=== PATIENT | male | born 1990 | race Two or more races ===

== ENCOUNTER 2024-01-21 13:06 | Inpatient (IN) | payer MEDICAID, OTHER ==
[~2024-01-21] VITALS: Ht 170.2 cm; Wt 84.9 kg
[2024-01-21] MEDS: SODIUM CHLORIDE 0.9% 1,000 ML IV ONE ×2 (15:06→17:30)
[2024-01-21 15:08] VITALS: PULSE 101; RESP 16; O2SAT 97
--- NOTE | 2024-01-21 15:17 | ED.PDOC ---
History of Present Illness HPI Comments 33-year-old male brought in by EMS complaining of dizziness since this morning. Patient states he feels like he is going to pass out, and has had unexplained sweating and chills. He denies any fever, but has had headache, nausea and vomiting. He also notes onset of left-sided chest pain and pain radiating to his left upper extremity while awaiting evaluation in the ER. He denies any shortness a breath or edema. He states he has a history of hypertension but is not currently taking any medications and does not regularly see a doctor. He also admits to regular moderate to heavy alcohol consumption, but states he not had a drink in 2 days. Chief Complaint: Dizziness Time Seen by MD: 14:25 Reviewed Notes: Nurses Notes, Change Lead Notes, Medications, Allergies Allergies: Coded Allergies: NO KNOWN ALLERGIES (Unverified , 01/21/24) Information Source: Patient Mode of Arrival: EMS Severity: Moderate Timing: Hours Duration: Since onset, Hours Prehospital treatment: None Past Medical History PAST MEDICAL HISTORY: HTN Surgical History: Denies all surgeries Family History Family History: Reviewed,noncontributory to illness, Unknown Social History Smoker: Cigarettes Alcohol: Heavy Drugs: Denies Drug Use Lives In: Homeless Constitutional: denies: chills, diaphoresis, fatigue, fever, malaise, sweats, weakness, others EENTM: denies: blurred vision, double vision, ear bleeding, ear discharge, ear drainage, ear pain, ear ringing, eye pain, eye redness, hearing loss, mouth pain, mouth swelling, nasal discharge, nose bleeding, nose congestion, nose pain, photophobia, tearing, throat pain, throat swelling, voice changes, others Respiratory: denies: cough, hemoptysis, orthopnea, SOB at rest, shortness of breath, SOB with excertion, stridor, wheezing, others Cardiovascular: reports: chest pain, syncope; denies: dizzy spells, diaphoresis, Dyspnea on exertion, edema, irregular heart beat, left arm pain, lightheadedness, palpitations, PND, others Gastrointestinal: denies: abdomen distended, abdominal pain, blood streaked bowels, constipated, diarrhea, dysphagia, difficulty swallowing, hematemesis, melena, nausea, poor appetite, poor fluid intake, rectal bleeding, rectal pain, vomiting, others Genitourinary: denies: burning, dysuria, flank pain, frequency, hematuria, incontinence, penile discharge, penile sore, pain, testicle pain, testicle swelling, urgency, others Neurological: reports: dizziness, fainting; denies: headache, left sided numbness, left sided weakness, numbness, paresthesia, pre-existing deficit, right sided numbness, right sided weakness, seizure, speech problems, tingling, tremors, weakness, others Musculoskeletal: denies: back pain, gout, joint pain, joint swelling, muscle pain, muscle stiffness, neck pain, others Integumetry: denies: bruises, change in color, change in hair/nails, dryness, laceration, lesions, lumps, rash, wounds, others Allergic/Immunocompromised: denies: Difficulty Healing, Frequent Infections, Hives, Itching, others Hematologic/Lymphatic: denies: anemia, blood clots, easy bleeding, easy bruising, swollen glands, others Endocrine: denies: excessive hunger, excessive sweating, excessive thirst, excessive urination, flushing, intolerance to cold, intolerance to heat, unex plained weight gain, unexplained weight loss, others Psychiatric: denies: anxiety, bipolar disorder, depression, hopeless, panic disorder, schizophrenia, sleepless, suicidal, others All Other Systems: Reviewed and Negative Physical Exam General Appearance: Mild Distress, Other (Ill-appearing) HEENT: Normal ENT Inspection, PERRL/EOMI Neck: Full Range of Motion, Non-Tender, Normal Inspection, Supple Respiratory: Lungs Clear, No Accessory Muscle Use, No Respiratory Distress, Normal Breath Sounds Cardiovascular: No Edema, No JVD, Regular Rate/Rhythm Breast Exam: Deferred Gastrointestinal: Non Tender, Soft Genitalia: Deferred Pelvic: Deferred Rectal: Deferred Extremities: Normal inspection, Normal range of motion, Non-tender, No pedal edema Neurologic: Alert, Normal Affect, Normal Mood, Other (Appears tremulous, moves all extremities, no gross focal deficit) Cerebellar Function: NOT DONE Reflexes: NOT DONE Skin: Diaphoresis, Pallor, Other (Cool) Lymphatic: NOT DONE Was a procedure done? Was a procedure done?: No Differential Dx Considerations may include: Alcohol withdrawal, viral syndrome, dehydration/hypovolemia, electrolyte imbalance, CVA, TIA, vertigo, arrhythmia or other cardiac event, among others X-Ray, Labs, Meds, VS Vital Signs Date Time Temp Pulse Resp B/P (MAP) Pulse Ox O2 Delivery O2 Flow Rate FiO2 01/21/24 15:08 101 16 97 Room Air* 0 21 01/21/24 15:08 98.3 101 18 218/96 (136) 97 98.3 01/21/24 13:11 95 01/21/24 13:10 97.6 103 16 174/115 (134) 99 Lab Test 01/21/24 16:40 01/21/24 14:44 Range/Units Troponin I High Sensitivity 17 15 </=54 ng/L White Blood Count 8.1 4.4-10.8 10^3/uL Red Blood Count 5.30 4.5-5.90 10^6/uL Hemoglobin 18.3 H 13.5-17.5 g/dL Hematocrit 52.4 41.0-53.0 % Mean Corpuscular Volume 98.9 80.0-100.0 fL Mean Corpuscular Hemoglobin 34.5 H 28.0-32.0 pg Mean Corpuscular Hemoglobin Concent 34.9 32.0-36.0 g/dL Red Cell Distribution Width 13.0 11.8-14.3 % Platelet Count 94 L 140-450 10^3/uL Mean Platelet Volume 8.3 6.9-10.8 fL Neutrophils (%) (Auto) 90.1 H 37.0-80.0 % Lymphocytes (%) (Auto) 2.5 L 10.0-50.0 % Monocytes (%) (Auto) 7.2 0.0-12.0 % Eosinophils (%) (Auto) 0.0 0.0-7.0 % Basophils (%) (Auto) 0.2 0.0-2.0 % Neutrophils # (Auto) 7.3 1.6-8.6 10 ^3/uL Lymphocytes # (Auto) 0.2 L 0.4-5.4 10 ^3/uL Monocytes # (Auto) 0.6 0-1.3 10 ^3/uL Eosinophils # (Auto) 0 0-0.8 10 ^3/uL Basophils # (Auto) 0 0-0.2 10 ^3/uL Nucleated Red Blood Cells 0.0 % Sodium Level 131 L 136-145 mmol/L Potassium Level 4.0 3.5-5.1 mmol/L Chloride Level 92 L 98-107 mmol/L Carbon Dioxide Level 22 20-31 mmol/L Anion Gap 17 H 5-15 Blood Urea Nitrogen 23 9-23 mg/dL Creatinine 0.89 0.700-1.30 mg/dL Glomerular Filtration Rate Calc 115 >90 mL/min BUN/Creatinine Ratio 25.8 H 10.0-20.0 Serum Glucose 179 H 74-106 mg/dL Lactic Acid Level 2.8 *H 0.4-2.0 mmol/L Calcium Level 9.7 8.7-10.4 mg/dL B-Type Natriuretic Peptide 36.42 0-100 pg/mL Plasma/Serum Blood Alcohol < 3.0 <10 mg/dL Current Medications Medications (Trade) Dose Ordered Sig/Chirag Route Start Time Stop Time Status Last Admin Sodium Chloride 1,000 ml @ 1,000 mls/hr Q1H ONCE IV 01/21/24 14:45 01/21/24 15:44 DC 01/21/24 15:06 Lorazepam (Ativan Inj) 1 mg ONCE ONCE IV 01/21/24 15:15 01/21/24 15:16 DC 01/21/24 16:21 Chlordiazepoxide HCl (Librium Capsule) 50 mg ONCE ONCE PO 01/21/24 15:15 01/21/24 15:16 DC 01/21/24 16:21 Ondansetron HCl (Zofran) 4 mg ONCE ONCE IV 01/21/24 15:15 01/21/24 15:16 DC 01/21/24 16:21 PROCEDURE(s): HWOCT - HEAD WITHOUT CONTRAST REASON: dizzy syncope ORDER NUMBER(s): [id number], ACCESSION NUMBER(s): [id number] ADDENDUM ADDENDUM # 1 Critical findings (potentially) Critical Result: Vague area of hypoattenuation in the left frontal lobe. Can not exclude infarct in the appropriate clinical setting. Findings discussed with DAVE ZARATE by Dr. 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 .. ORIGINAL REPORT CLINICAL INFORMATION: 33 years old, Male; dizzy, syncope. TECHNIQUE: Axial imaging was obtained through the brain without contrast. Coronal and sagittal reformatted images were obtained, reviewed, and stored. Images were reviewed in brain and bone windows. All CT scans at this medical facility are performed using dose modulation techniques as appropriate to a performed exam including the following: Automated exposure control was utilized; adjustment of the MA and/or KV according to patient size; and use of iterative reconstruction technique. CTDIvol = 53.82 mGy DLP = 972.13 mGy-cm COMPARISON: None FINDINGS: No acute intracranial hemorrhage. Subtle area of hypoattenuation suspected in the left frontal lobe, of uncertain etiology. The ventricles and sulci are within normal limits in size for age. Basal cisterns are patent. The calvarium is unremarkable. Paranasal sinuses and mastoid air cells are clear. IMPRESSION: 1. No acute intracranial hemorrhage. 2. Subtle ill-defined area of hypoattenuation in the left frontal lobe. Correlate with clinical findings. If there is any clinical concern for ischemia or other pathology in this location, MRI could be obtained. X-Ray, Labs, Meds, VS Comment 33-year-old male with a history of hypertension complaining of dizziness and near syncope Vitals remarkable for heart rate 103, BP 174/115 Exam remarkable for diaphoresis and tremulousness. No gross focal neurologic deficit CT head: IMPRESSION: 1. No acute intracranial hemorrhage. 2. Subtle ill-defined area of hypoattenuation in the left frontal lobe. Correlate with clinical findings. If there is any clinical concern for ischemia or other pathology in this location, MRI could be obtained. Critical Result: Vague area of hypoattenuation in the left frontal lobe. Can not exclude infarct in the appropriate clinical setting. CBC remarkable for hemoglobin 18.3, basic metabolic panel remarkable for sodium 131, chloride 92, BNP and 2 troponins negative Lactate 2.8 Patient treated with the following in the ED: 1 L 0.9 normal saline IV bolus, Ativan 1 mg IV, Librium 50 mg p.o., Zofran 4 mg IV, hydralazine 10 mg IV, aspirin 325 mg p.o. On re-evaluation, patient had no new neurologic changes, appeared to be resting comfortably. Plan is to admit the patient for MRI and neuro evaluation. Time of 1ST Reevaluation: 14:55 Reevaluation 1ST: Unchanged Time of 2ND Reevaluation: 17:37 Reevaluation 2ND: Improved Patient Education/Counseling: Diagnosis, Treatment, Prognosis Family Education/Counseling: No Family Present Additional Information - The following tests were ordered, and results were reviewed by me: PHA, XY, L AB, EKG, CT - I reviewed and agreed with the following test results read by other provider: X-ray, CT - I discussed treatments and results with medical personnel and: (consultants, family) Departure 1 Departure Time of Disposition: 17:38 Impression: Primary Impression: Hypertensive emergency Additional Impressions: Dizziness Alcohol withdrawal Qualified Codes: F10.939 - Alcohol use, unspecified with withdrawal, unspecified Electrolyte imbalance Elevated lactic acid level Disposition: ADMITTED INPATIENT Admit to: Tele Condition: Guarded Critical Care Note Critical Care Time?: Yes (45 min-critical care time only) Critical care comment: Critical care time including multiple bedside re-evaluations, review of lab and imaging studies, and discussion of the case with the admitting provider. Patient is high risk for hemodynamic, metabolic and/or neurologic decompensation Stability Stability form required: No Heart Score Heart Score: Heart Score Response (Comments) Value History N/A 0 EKG N/A 0 Age N/A 0 Risk Factors N/A 0 Troponin N/A 0 Total 0 I personally scribed for DAVE DOTY MD ([email or web address]) on 01/21/24 at 15:17. Electronically submitted by Sumit Cody ([email or web address]). DAVE DOTY MD Jan 21, 2024 15:17
--- NOTE | 2024-01-21 15:38 | DVH ---
XY CHEST PORTABLE, HISTORY: dzzy syncope COMPARISON: None None TECHNICAL DATA: 1 view of the chest was obtained. FINDINGS: Lines and tubes: None Cardiomediastinal silhouette: normal Pulmonary vasculature: normal Lung expansion: normal Lung airspace: normal Lung interstitium: normal Pleura: normal Pneumothorax: no Bones: Unremarkable Other: no IMPRESSION: No acute intrathoracic abnormality.
--- NOTE | 2024-01-21 15:39 | DVH ---
CLINICAL INFORMATION: 33 years old, Male; dizzy, syncope. TECHNIQUE: Axial imaging was obtained through the brain without contrast. Coronal and sagittal refor matted images were obtained, reviewed, and stored. Images were reviewed in brain and bone windows. A ll CT scans at this medical facility are performed using dose modulation techniques as appropriate to a performed exam including the following: Automated exposure control was utilized; adjustment of the MA and/or KV according to patient size; and use of iterative reconstruction technique. CTDIvol = 53.82 mGy DLP = 972.13 mGy-cm COMPARISON: None FINDINGS: No acute intracranial hemorrhage. Subtle area of hypoattenuation suspected in the left fro ntal lobe, of uncertain etiology. The ventricles and sulci are within normal limits in size for age. Basal cisterns are patent. The calvarium is unremarkable. Paranasal sinuses and mastoid air cell s are clear. IMPRESSION: 1. No acute intracranial hemorrhage. 2. Subtle ill-defined area of hypoattenuation in the left frontal lobe. Correlate with clinical findi ngs. If there is any clinical concern for ischemia or other pathology in this location, MRI could be obtained.
[2024-01-21 16:04] LABS: Anion Gap 17 (5-15); Basophils # (auto) 0 10 ^3/uL (0-0.2); Basophils % (auto) 0.2 % (0.0-2.0); Calcium 9.7 mg/dL (8.7-10.4); Carbon Dioxide 22 mmol/L (20-31); Eosinophils # (auto) 0 10 ^3/uL (0-0.8); Hematocrit 52.4 % (41.0-53.0); Hemoglobin 18.3 g/dL (13.5-17.5); Lymphocytes # (auto) 0.2 10 ^3/uL (0.4-5.4); Lymphocytes % (auto) 2.5 % (10.0-50.0); Mean Corpuscular Hemoglobin 34.5 pg (28.0-32.0); Mean Corpuscular Hgb Conc. 34.9 g/dL (32.0-36.0); Mean Corpuscular Volume 98.9 fL (80.0-100.0); Monocytes # (auto) 0.6 10 ^3/uL (0-1.3); Monocytes % (auto) 7.2 % (0.0-12.0); Neutrophils # (auto) 7.3 10 ^3/uL (1.6-8.6); Neutrophils % (auto) 90.1 % (37.0-80.0); Platelet Count (auto) 94 10^3/uL (140-450); White Blood Cell 8.1 10^3/uL (4.4-10.8)
[2024-01-21 16:09] LABS: BUN/Creatinine Ratio 25.8 (10.0-20.0)
[2024-01-21 16:14] LABS: Chloride 92 mmol/L (98-107); Sodium 131 mmol/L (136-145)
[2024-01-21 16:15] LABS: Blood Alcohol < 3.0 mg/dL (<10); Blood Urea Nitrogen 23 mg/dL (9-23); Glucose 179 mg/dL (74-106)
[2024-01-21 16:17] LABS: Lactic Acid w/Reflex 2.8 mmol/L (0.4-2.0)
[2024-01-21] MEDS: ONDANSETRON HCL 4 MG/2 ML VIAL IV ONE (16:21)
[2024-01-21] MEDS: LORazepam 2MG/ML-1ML VIAL IV ONE (16:21)
[2024-01-21] MEDS: chlordiazePOXIDE HCL 25 MG CAP PO ONE (16:21)
[2024-01-21] MEDS ORDERED: LORazepam 2MG/ML-1ML VIAL IV PRN (17:30)
[2024-01-21] MEDS ORDERED: ONDANSETRON HCL 4 MG/2 ML VIAL IV PRN (17:30)
[2024-01-21] MEDS ORDERED: DEXTROSE (50%) 50ML SYRG IV PRN (17:30)
[2024-01-21] MEDS: LORazepam 2MG/ML-1ML VIAL IV SCH (17:30)
[2024-01-21] MEDS ORDERED: ACETAMINOPHEN 325 MG TAB PO PRN (17:30)
--- NOTE | 2024-01-21 17:34 | DVHHP2 ---
History of Present Illness Reason for Visit: General weakness History of Present Illness 33-year-old obese patient comes in for complaints of weakness patient does have a past medical history of hypertension but states that she had been having dizziness on and off associated with sweating and chills patient also states having intermittent chest pain on and off but can not attribute it to anything that she can think of initially patient states no medications currently for the management of blood pressure but does have a strong history of drinking and there is slight concern that the patient may be having signs of early withdrawal other than drinking history no smoking history patient takes no other medica tions states no other drug use plan as of now is for admission and further evaluation as per ED recommendation Cardiovascular: HTN ALCOHOL: heavy Review of Systems Constitutional: Yes: Weakness; No: Fever, Chills, Sweats, Malaise, Other Eyes: No: Pain, Vision change, Conjunctivae inflammation, Eyelid inflammation, Other, Redness ENT: No: Ear pain, Ear discharge, Nose pain, Nose discharge, Nose congestion, Mouth pain, Mouth swelling, Throat pain, Throat swelling, Other Respiratory: No: Cough, Dry, Shortness of breath, SOB with excertion, Wheezing, Hemoptysis, Pleuritic Pain, Sputum, Wheezing, Other Cardiovascular: Chest Pain, Palpitations; No: Orthopnea, Paroxysmal Noc. Dyspnea, Edema, Lt Headedness, Other Gastrointestinal: No: Nausea, Vomiting, Abdominal Pain, Diarrhea, Constipation, Melena, Hematochezia, Other Genitourinary: No Dysuria, No Frequency, No Incontinence, No Hematuria, No R etention, No Other Musculoskeletal: No: other, neck pain, shoulder pain, arm pain, back pain, hand pain, leg pain, foot pain Skin: No: Rash, Lesions, Jaundice, Bruising, Other Neurological: No: Weakness, Numbness, Incoordination, Change in speech, Confusion, Seizures, Other Allergies: Coded Allergies: NO KNOWN ALLERGIES (Unverified , 01/21/24) Exam Vital Signs Vital Signs Date Time Temp Pulse Resp B/P (MAP) Pulse Ox O2 Delivery O2 Flow Rate FiO2 01/21/24 15:08 101 16 97 Room Air* 0 21 01/21/24 15:08 98.3 218/96 (136) 98.3 General Appearance: Alert, Oriented X3, mild distress HEENT: Atraumatic, PERRLA Respiratory: Clear to auscultation, Normal air movement Cardiovascular: Regular rate, Normal S1 Abdominal: Normal bowel sounds, Soft Extremities: No clubbing, No cyanosis Skin: No rashes, No breakdown Neuro: Normal gait, Normal speech Psych/Mental Status: Mood NL Labs/Xrays Labs Test 01/21/24 16:40 01/21/24 14:44 Range/Units Troponin I High Sensitivity 17 </=54 ng/L White Blood Count 8.1 4.4-10.8 10^3/uL Red Blood Count 5.30 4.5-5.90 10^6/uL Hemoglobin 18.3 H 13.5-17.5 g/dL Hematocrit 52.4 41.0-53.0 % Mean Corpuscular Volume 98.9 80.0-100.0 fL Mean Corpuscular Hemoglobin 34.5 H 28.0-32.0 pg Mean Corpuscular Hemoglobin Concent 34.9 32.0-36.0 g/dL Red Cell Distribution Width 13.0 11.8-14.3 % Platelet Count 94 L 140-450 10^3/uL Mean Platelet Volume 8.3 6.9-10.8 fL Neutrophils (%) (Auto) 90.1 H 37.0-80.0 % Lymphocytes (%) (Auto) 2.5 L 10.0-50.0 % Monocytes (%) (Auto) 7.2 0.0-12.0 % Eosinophils (%) (Auto) 0.0 0.0-7.0 % Basophils (%) (Auto) 0.2 0.0-2.0 % Neutrophils # (Auto) 7.3 1.6-8.6 10 ^3/uL Lymphocytes # (Auto) 0.2 L 0.4-5.4 10 ^3/uL Monocytes # (Auto) 0.6 0-1.3 10 ^3/uL Eosinophils # (Auto) 0 0-0.8 10 ^3/uL Basophils # (Auto) 0 0-0.2 10 ^3/uL Nucleated Red Blood Cells 0.0 % Sodium Level 131 L 136-145 mmol/L Potassium Level 4.0 3.5-5.1 mmol/L Chloride Level 92 L 98-107 mmol/L Carbon Dioxide Level 22 20-31 mmol/L Anion Gap 17 H 5-15 Blood Urea Nitrogen 23 9-23 mg/dL Creatinine 0.89 0.700-1.30 mg/dL Glomerular Filtration Rate Calc 115 >90 mL/min BUN/Creatinine Ratio 25.8 H 10.0-20.0 Serum Glucose 179 H 74-106 mg/dL Lactic Acid Level 2.8 *H 0.4-2.0 mmol/L Calcium Level 9.7 8.7-10.4 mg/dL B-Type Natriuretic Peptide 36.42 0-100 pg/mL Plasma/Serum Blood Alcohol < 3.0 <10 mg/dL Assessment/Plan Assessment/Plan Admit to med surge Management for hypertensive urgency Management for chest pain rule out ACS Monitor closely for need of updated level such as telemetry IV hydration No acute signs of infection as of now UA pending History of hypertension not on any medication for the management of hypertension Initial evaluation in the ED patient had hypertensive urgency We will place p.r.n. order for the management of high blood pressure Patient with hyperglycemia IV hydration required at this point in time Patient with no stated history of diabetes however is hyperglycemic we will do insulin sliding scale Due to patient's complaint of chest pain and hypertension we will place patient chest pain protocol Plan discussed with: Patient Problem List: (1) Diabetes mellitus type 2 with complications, uncontrolled (2) Hypertensive urgency (3) Chest pain Date of Service: Jan 21, 2024 Billing Provider: YARI ZENG MD Common Visit Codes: [id number] INP/OBS CARE (HIGH) YARI ZENG MD Jan 21, 2024 17:34
[2024-01-21] MEDS: hydrALAZINE HCL 20 MG/ML VL IV ONE (18:25)
--- NOTE | 2024-01-21 18:56 | ECG ---
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
[2024-01-21] MEDS: ACCU-CHEK COMFORT CURVE STRIP VI SCH (21:00)
[2024-01-21] MEDS: InsuLIN REG 1unit/0.01ml Soln (100units/ml) SC SCH (21:07)
[2024-01-21] MEDS: LORazepam 0.5 MG TAB PO SCH (21:30)
[2024-01-21] MEDS: FOLIC ACID 1 MG TAB PO ONE (21:39)
[2024-01-21] MEDS: THIAMINE HCL 100 MG TAB PO ONE (21:39)
[2024-01-21] MEDS: MULTIPLE VITAMIN TAB PO ONE (21:40)
[2024-01-21] MEDS: ASPirin 325 MG TAB PO ONE (21:40)
[2024-01-21] MEDS: ATORVASTATIN 20 MG TAB PO SCH (22:00)
[2024-01-21] MEDS: METOPROLOL TARTRATE 25 MG TAB PO SCH (22:00)
[2024-01-22] VITALS (8 sets, daily range): BP systolic 101–138; BP diastolic 71–94; PULSE 81–157; RESP 17–24; TEMP 97.7–98.9; O2SAT 95–98
[2024-01-22] MEDS: hydrOXYzine 25 MG TAB or CAP PO SCH (01:19)
--- NOTE | 2024-01-22 09:57 | DVHPN2 ---
Assessment/Plan Assessment/Plan Progress note Subjective 33-year-old male with no significant past medical history admitted for alcohol withdrawal, found to be hypotensive. Also found areas of hypo attenuation on the frontal lobes on CT head without focal neurological deficit. Patient seen by me today during rounds, ambulating to CT, broad based gait but per pt he has always been walking "funny". No focal neurological deficit, intact thought process albeit slow. Last drink 5 days [employer]. no drugs per pt Objective Physical exam Alert, oriented x4 Slow thoughts PERRLA CN II-XII intact face symmetric, tongue midline Dry mucous membrane clear breath sounds bilaterally S1 S2 RRR no murmur abdomen soft, nontender, no organomegally equal strength bilaterally in upper and lower extremity sensory intact to touch in bilateral upper and lower extremity Broad-based gait Lab Na 131 Bicarb 22 Gap 17 Hyperglycemia Lact 2.8 -> 1.[address] head with areas of hypoattenuation in the left frontal lobe MRI, CTA negative Assessment and plan Hypertensive emergency Acute stroke/TIA ruled out Alcohol withdrawal Alcohol use Tobacco use High anion gap metabolic acidosis Lactic acidosis Polycythemia Hyperglycemia Status post IV hydralazine Started on lisinopril, switch metoprolol tartrate to carvedilol P.r.n. labetalol for symptomatic hypertension (SBP >180 + symptoms), low threshold to start drip Started on Librium taper Ativan 2 mg IV p.r.n. withdrawal Nicotine replacement therapy IV hydration Aspirin and high-intensity statin Neuro checks per protocol Repeat CBC, blood smear Obtain EKG, telemetry Send lipid, A1c Replete electrolytes Diet heart healthy, diabetic DVT prophylaxis ambulatory 101 minutes critical care time spent on this patient including evaluation, chart review, formulating plan and communication with team, excluding any procedures or point of care imaging Plan discussed with: Patient My Orders Orders - GRETEL RAI MD Procedure Category Date Status Time Brain Head Wo Contrast MRI 01/22/24 Logged 08:48 Angio Head/Neck CT 01/22/24 Taken 08:48 Date of Service: Jan 22, 2024 Billing Provider: GRETEL RAI MD Common Visit Codes: [id number] INP/OBS CARE(HIGH), [id number] CARE 30-74 MIN, [id number] CARE-EACH +30MIN GRETEL RAI MD Jan 22, 2024 09:57
[2024-01-22] MEDS ORDERED: LABETALOL HCL 20 MG/4 ML VL IV PRN (10:00)
[2024-01-22] MEDS ORDERED: THIAMINE HCL 100 MG TAB PO SCH (10:00)
[2024-01-22] MEDS ORDERED: DOCUSATE SOD 100 MG CAP PO SCH (10:00)
[2024-01-22] MEDS ORDERED: FOLIC ACID 1 MG TAB PO SCH (10:00)
[2024-01-22] MEDS: chlordiazePOXIDE HCL 25 MG CAP PO SCH (10:22)
[2024-01-22] MEDS: ASPirin 81 mg TAB PO SCH (10:22)
[2024-01-22] MEDS: LISINOPRIL 5 MG TAB PO SCH (10:23)
[2024-01-22] MEDS: CLOPIDOGREL BISULFATE 75 MG TAB PO SCH (10:24)
--- NOTE | 2024-01-22 10:26 | DVH ---
EXAM: CT ANGIO HEAD/Neck HISTORY: stroke COMPARISON: None TECHNIQUE: CTA imaging of the head was performed through the [place] following the uneventf ul administration of intravenous contrast. Sagittal and coronal reformatted images were obtained from the source data. 3D/MIP post-processing of the source data set was performed and reviewed by the rad iologist. Radiation Dose Information: CT Dose: CTDI volume is 22.35 mGy. Dose-length product is 848.74 mGy*cm All CT scans at this medical facility are performed using dose modulation techniques as appropriate t o a performed exam including the following: Automated exposure control was utilized; adjustment of th e MA and/or KV according to patient size; and use of iterative reconstruction technique. FINDINGS: CTA Neck: Aortic Arch: Common origin of the right brachiocephalic and left carotid arteries from the arch Right brachiocephalic artery: Unremarkable. Right carotid artery: Unremarkable. Right subclavian artery: Unremarkable. Right vertebral artery: Unremarkable. Left carotid artery: Unremarkable. Left subclavian artery: Unremarkable. Left vertebral artery: Unremarkable. OTHER: None. CTA Head: [place]: The arteries of [place] are unremarkable, without evidence of aneurysm, steno sis or thrombosis. Dural venous: Grossly unremarkable. Other: None. IMPRESSION: 1. No large vessel occlusion or high-grade stenosis in the arteries of the head and neck. No aneurysm is identified.
--- NOTE | 2024-01-22 10:27 | DVH ---
PROCEDURE: MRI BRAIN HEAD WO CONTRAST INDICATION: stroke EXAM DATE: 01/22/2024 09:33 AM COMPARISON: CT HEAD WITHOUT CONTRAST on DOS: 01/21/24 TECHNIQUE: MRI of the brain without intravenous contrast. FINDINGS: Diffusion weighted images of the brain demonstrate no evidence of acute infarction. There is no evidence of acute intracranial hemorrhage, extra-axial collection, mass effect, midline s [place], herniation or hydrocephalus. The ventricles, sulci and cisterns appear age appropriate. The signal intensities of the brain parenchyma are within normal limits. There are no signal abnormalities on the susceptibility weighted sequences. The major vascular flow voids are present. The visualized paranasal sinuses and mastoid air cells are clear. The surrounding soft tissues and o sseous structures are unremarkable. IMPRESSION: 1. Limited by motion. No evidence of acute ischemia. HS:Y
[2024-01-22] MEDS: MULTIPLE VITAMIN TAB PO SCH (10:38)
[2024-01-22 11:08] LABS: Alanine Aminotransferase 99 U/L (7-40); Albumin 4.5 g/dL (3.2-4.8); Alkaline Phosphatase 76 U/L (46-116); Anion Gap 10 (5-15); Aspartate Aminotransferase 91 U/L (13-40); BUN/Creatinine Ratio 23.1 (10.0-20.0); Blood Urea Nitrogen 18 mg/dL (9-23); Calcium 10.1 mg/dL (8.7-10.4); Carbon Dioxide 25 mmol/L (20-31); Chloride 95 mmol/L (98-107); Cholesterol 273 mg/dL (< 200); Glucose 89 mg/dL (74-106); HDL Cholesterol 88 mg/dL (40-59); LDL Cholesterol 157 mg/dL (< 100); Potassium 3.9 mmol/L (3.5-5.1); Sodium 130 mmol/L (136-145); Triglycerides 118 mg/dL (< 150)
[2024-01-22 11:09] LABS: Bilirubin, Total 2.1 mg/dL (0.2-1.0); Total Protein 7.1 g/dL (5.7-8.2)
[2024-01-22 11:16] LABS: Basophils # (auto) 0 10 ^3/uL (0-0.2); Basophils % (auto) 0.3 % (0.0-2.0); Eosinophils # (auto) 0 10 ^3/uL (0-0.8); Eosinophils % (auto) 0.1 % (0.0-7.0); Hematocrit 50.7 % (41.0-53.0); Hemoglobin 17.3 g/dL (13.5-17.5); Lymphocytes # (auto) 1.2 10 ^3/uL (0.4-5.4); Mean Corpuscular Hemoglobin 33.8 pg (28.0-32.0); Mean Corpuscular Hgb Conc. 34.2 g/dL (32.0-36.0); Mean Corpuscular Volume 98.9 fL (80.0-100.0); Monocytes # (auto) 0.6 10 ^3/uL (0-1.3); Monocytes % (auto) 10.9 % (0.0-12.0); Neutrophils % (auto) 67.7 % (37.0-80.0); Nucleated Red Blood Cells % 0.2 %; Platelet Count (auto) 87 10^3/uL (140-450); Red Blood Cells 5.12 10^6/uL (4.5-5.90); Red Cell Distribution Width 13.2 % (11.8-14.3); White Blood Cell 5.9 10^3/uL (4.4-10.8)
[2024-01-22 11:32] LABS: Wright Stain Ready for Review
[2024-01-22] MEDS: THIAMINE 100mg/ml INJ (200mg/2ml VIAL) IV SCH (12:52)
[2024-01-22] MEDS: SODIUM CHLORIDE 0.9% 1,000 ML IV ONE (12:53)
[2024-01-22] MEDS: FOLIC ACID 1 MG in D5W 5% 50 ML INJ SCH (13:37)
[2024-01-22] MEDS: IOHEXOL 350 MG/ML 100ML IJ ONE (20:45)
[2024-01-22] MEDS: ATORVASTATIN 20 MG TAB PO SCH (22:10)
[2024-01-23] MEDS: LORazepam 0.5 MG TAB PO PRN (02:49)
[2024-01-23 06:50] LABS: Basophils # (auto) 0 10 ^3/uL (0-0.2); Basophils % (auto) 0.3 % (0.0-2.0); Eosinophils # (auto) 0 10 ^3/uL (0-0.8); Eosinophils % (auto) 0.5 % (0.0-7.0); Hematocrit 48.3 % (41.0-53.0); Lymphocytes # (auto) 1.1 10 ^3/uL (0.4-5.4); Lymphocytes % (auto) 21.3 % (10.0-50.0); Mean Corpuscular Hemoglobin 34.6 pg (28.0-32.0); Mean Corpuscular Hgb Conc. 35.3 g/dL (32.0-36.0); Mean Corpuscular Volume 98.3 fL (80.0-100.0); Monocytes # (auto) 0.4 10 ^3/uL (0-1.3); Monocytes % (auto) 8.5 % (0.0-12.0); Neutrophils # (auto) 3.7 10 ^3/uL (1.6-8.6); Neutrophils % (auto) 69.4 % (37.0-80.0); Nucleated Red Blood Cells % 0.1 %; Platelet Count (auto) 66 10^3/uL (140-450); Red Blood Cells 4.91 10^6/uL (4.5-5.90); Red Cell Distribution Width 12.8 % (11.8-14.3); White Blood Cell 5.3 10^3/uL (4.4-10.8)
[2024-01-23 07:17] LABS: Alanine Aminotransferase 99 U/L (7-40); Albumin 4.2 g/dL (3.2-4.8); Alkaline Phosphatase 71 U/L (46-116); Anion Gap 8 (5-15); Aspartate Aminotransferase 84 U/L (13-40); BUN/Creatinine Ratio 17.9 (10.0-20.0); Blood Urea Nitrogen 12 mg/dL (9-23); Calcium 9.9 mg/dL (8.7-10.4); Carbon Dioxide 27 mmol/L (20-31); Chloride 100 mmol/L (98-107); Glucose 79 mg/dL (74-106); Potassium 3.5 mmol/L (3.5-5.1)
[2024-01-23 07:18] LABS: Bilirubin, Total 2.2 mg/dL (0.2-1.0); Total Protein 6.7 g/dL (5.7-8.2)
[2024-01-23 07:19] LABS: Sodium 135 mmol/L (136-145)
[2024-01-23 08:33] VITALS: RESP 16; O2SAT 97
[2024-01-23 08:37] VITALS: BP 129/85; PULSE 95; RESP 17; TEMP 98.4; O2SAT 100
[2024-01-23] MEDS ORDERED: THIAMINE 100mg/ml INJ (200mg/2ml VIAL) IV SCH (09:15)
[2024-01-23 09:57] LABS: Magnesium 2.1 mg/dL (1.6-2.6)
[2024-01-23 09:58] LABS: Phosphorus 3.6 mg/dL (2.4-5.1)
--- NOTE | 2024-01-23 11:56 | DVHDS2 ---
Discharge Summary Date of Admission Jan 21, 2024 at 17:23 Date of Discharge: Jan 23, 2024 Labs/Diagnostic Data: Laboratory Results Test 01/23/24 08:34 01/23/24 06:21 01/22/24 10:14 01/21/24 17:31 POC Glucose 87 mg/dl (70-106) White Blood Count 5.3 10^3/uL (4.4-10.8) Red Blood Count 4.91 10^6/uL (4.5-5.90) Hemoglobin 17.0 g/dL (13.5-17.5) Hematocrit 48.3 % (41.0-53.0) Mean Corpuscular Volume 98.3 fL (80.0-100.0) Mean Corpuscular Hemoglobin 34.6 pg (28.0-32.0) Mean Corpuscular Hemoglobin Concent 35.3 g/dL (32.0-36.0) Red Cell Distribution Width 12.8 % (11.8-14.3) Platelet Count 66 10^3/uL (140-450) Mean Platelet Volume 8.9 fL (6.9-10.8) Neutrophils (%) (Auto) 69.4 % (37.0-80.0) Lymphocytes (%) (Auto) 21.3 % (10.0-50.0) Monocytes (%) (Auto) 8.5 % (0.0-12.0) Eosinophils (%) (Auto) 0.5 % (0.0-7.0) Basophils (%) (Auto) 0.3 % (0.0-2.0) Neutrophils # (Auto) 3.7 10 ^3/uL (1.6-8.6) Lymphocytes # (Auto) 1.1 10 ^3/uL (0.4-5.4) Monocytes # (Auto) 0.4 10 ^3/uL (0-1.3) Eosinophils # (Auto) 0 10 ^3/uL (0-0.8) Basophils # (Auto) 0 10 ^3/uL (0-0.2) Nucleated Red Blood Cells 0.1 % Sodium Level 135 mmol/L (136-145) Potassium Level 3.5 mmol/L (3.5-5.1) Chloride Level 100 mmol/L (98-107) Carbon Dioxide Level 27 mmol/L (20-31) Anion Gap 8 (5-15) Blood Urea Nitrogen 12 mg/dL (9-23) Creatinine 0.67 mg/dL (0.700-1.30) Glomerular Filtration Rate Calc 125 mL/min (>90) BUN/Creatinine Ratio 17.9 (10.0-20.0) Serum Glucose 79 mg/dL (74-106) Calcium Level 9.9 mg/dL (8.7-10.4) Phosphorus Level 3.6 mg/dL (2.4-5.1) Magnesium Level 2.1 mg/dL (1.6-2.6) Total Bilirubin 2.2 mg/dL (0.2-1.0) Aspartate Amino Transferase (AST) 84 U/L (13-40) Alanine Aminotransferase (ALT) 99 U/L (7-40) Alkaline Phosphatase 71 U/L (46-116) Total Protein 6.7 g/dL (5.7-8.2) Albumin 4.2 g/dL (3.2-4.8) Hemoglobin A1c 5.3 % A1C (<5.7) Triglycerides Level 118 mg/dL (< 150) Cholesterol Level 273 mg/dL (< 200) LDL Cholesterol 157 mg/dL (< 100) HDL Cholesterol 88 mg/dL (40-59) Lactic Acid Level 1.8 mmol/L (0.4-2.0) Test 01/21/24 16:40 01/21/24 14:44 Troponin I High Sensitivity 17 ng/L (</=54) B-Type Natriuretic Peptide 36.42 pg/mL (0-100) Plasma/Serum Blood Alcohol < 3.0 mg/dL (<10) Other Laboratory Tests 01/23/24 06:21 Brief Hx & Hospital Course: 33-year-old male admitted for hypertensive emergency, found low attenuation in the left frontal CT, brain MRI and CT angio negative, no neurological focal deficits. Patient left multiple times during this admission found wandering around the hallway, on my examination patient was AAO x3, however per nursing note there are episodes where he has only AAO x1 or 2. Suspicious of substance use while he was out of side. On my assessment today patient left AMA prior to me seeing or talking with the patient Condition at Discharge: Undetermined Final Diagnosis/Problems List Hypertensive emergency Acute stroke/TIA ruled out Alcohol withdrawal Alcohol use Tobacco use High anion gap metabolic acidosis Lactic acidosis Polycythemia Hyperglycemia Toxic metabolic encepalopathy Discharge Disposition: AMA 15 Discharge Statement: "Patient was advised to return to the ER or call 911 if any headaches, dizziness, shortness of breath, chest pain, abdominal pain, bleeding, fevers, or worsening of medical condition. Patient was counseled about treatment plan, medications, possible side effects, patientverbalized understanding. All questions were answered to the best of my ability. This discharge took greater then 30 minutes in planning, reviewing documentation, counseling the patient, and discussing with other team members." ASSESSMENT ASSESSMENT Assessment Hypertensive emergency Acute stroke/TIA ruled out Alcohol withdrawal Alcohol use Tobacco use High anion gap metabolic acidosis Lactic acidosis Polycythemia Hyperglycemia Date of Service: Jan 23, 2024 Billing Provider: GRETEL RAI MD Common Visit Codes: 31054-WGA/OBS DISCH DAY <30MIN GRETEL RAI MD Jan 23, 2024 11:56
[2024-01-24] MEDS ORDERED: CHL10C PO (17:59)
== END 2024-01-23 09:44 | disposition left against medical advice (07) | DRG 199 ==
LOC: EDBD 13:06 → ER 13:06 → OVERFLOW 17:23
PROVIDERS: ADMIT Student in an Organized Health Care Education/Training Program; ATTEND Student in an Organized Health Care Education/Training Program
DX: I16.1 Hypertensive emergency (principal); G92.8 Other toxic encephalopathy; E87.20 Acidosis, unspecified; D75.1 Secondary polycythemia; E66.9 Obesity, unspecified; E11.9 Type 2 diabetes mellitus without complications; F10.939 Alcohol use, unspecified with withdrawal, unspecified; Z53.29 Procedure and treatment not carried out because of patient's decision for other reasons; F17.210 Nicotine dependence, cigarettes, uncomplicated; Z79.899 Other long term (current) drug therapy; Z59.00 Homelessness unspecified; Z68.29 Body mass index [BMI] 29.0-29.9, adult; Y90.0 Blood alcohol level of less than 20 mg/100 ml
CPT/HCPCS: 36415; 70450; 70496; 70551; 71045; 80048; 80053; 80061; 80320; 82962; 83036; 83605; 83735; 83880; 84100; 84484; 85025; 93005; 99291; G0378; J1815; J2405; J7060

== ENCOUNTER 2024-01-24 14:22 | Emergency (ER) | payer MEDICAID ==
[~2024-01-24] VITALS: Ht 167.6 cm; Wt 78.0 kg
--- NOTE | 2024-01-24 15:12 | ED.PDOC ---
History of Present Illness HPI Comments 33 y/o M, with a Hx of uncontrolled HTN, DM?, EtOH and tobacco abuse, and homelessness, is BIBA for c/o sternal chest and left arm pain, shortness of breath, visual hallucinations, and generalized tremors for the past 4x days, today. Patient reports pain being sharp and tight in quality in addition to rating it a 6/10 and starting from his chest and then radiating to his left arm. Patient comments on Hx of similar pain in the past and admits to lat EtOH intake 2x days ago. Per EMS report, patient was seen at [facility] for EtOH withdrawals on 01/21/24 in addition to reporting patient having a Hx of noncompliance with his HTN medications and his vitals being stable and within normal limits and EKG showing regular sinus rhythm. Patient reports no additional pertinent or relevant Hx along with any recent injuries, sick contact, travel, spoiled food, or additional substance use/exposure, with exception of insulin Rx amidst endorsement on never being told on having DM. Patient denies having any palpitations, nausea, vomiting, fever, chills, or other associated symptoms or m odifiers at this time. Chief Complaint: Chest Pain Time Seen by MD: 14:45 Primary Care Provider: NONE Reviewed Notes: Nurses Notes, Lumite Injector Notes, Medications, Allergies Allergies: Coded Allergies: NO KNOWN ALLERGIES (Unverified , 01/21/24) Home Meds Active Scripts Chlordiazepoxide Hcl (Ni-1) (I (Librium) 10 Mg Cap, 10 MG PO BID for 7 Days, #14 CAP Prov:ANETTE MOSS MD 01/24/24 Information Source: Patient, Emergency Med Personnel Mode of Arrival: EMS Severity: Moderate Timing: Days Duration: Since onset Prehospital treatment: 12 Lead EKG, Pt Sitter Past Medical History PAST MEDICAL HISTORY: DM (with insulin use? ), HTN Surgical History: Denies all surgeries Family History Family History: Reviewed,noncontributory to illness, Unknown Social History Smoker: Cigarettes Alcohol: Heavy Drugs: Denies Drug Use Lives In: Homeless Constitutional: denies: chills, diaphoresis, fatigue, fever, malaise, sweats, weakness, others EENTM: denies: blurred vision, double vision, ear bleeding, ear discharge, ear drainage, ear pain, ear ringing, eye pain, eye redness, hearing loss, mouth pain, mouth swelling, nasal discharge, nose bleeding, nose congestion, nose pain, photophobia, tearing, throat pain, throat swelling, voice changes, others Respiratory: reports: shortness of breath; denies: cough, hemoptysis, orthopnea, SOB at rest, SOB with excertion, stridor, wheezing, others Cardiovascular: reports: chest pain, left arm pain; denies: dizzy spells, diaphoresis, Dyspnea on exertion, edema, irregular heart beat, lightheadedness, palpitations, PND, syncope, others Gastrointestinal: denies: abdomen distended, abdominal pain, blood streaked bowels, constipated, diarrhea, dysphagia, difficulty swallowing, hematemesis, melena, nausea, poor appetite, poor fluid intake, rectal bleeding, rectal pain, vomiting, others Genitourinary: denies: burning, dysuria, flank pain, frequency, hematuria, incontinence, penile discharge, penile sore, pain, testicle pain, testicle swelling, urgency, others Neurological: reports: tremors; denies: dizziness, fainting, headache, left sided numbness, left sided weakness, numbness, paresthesia, pre-existing deficit, right sided numbness, right sided weakness, seizure, speech problems, tingling, weakness, others Musculoskeletal: denies: back pain, gout, joint pain, joint swelling, muscle pain, muscle stiffness, neck pain, others Integumetry: denies: bruises, change in color, change in hair/nails, dryness, laceration, lesions, lumps, rash, wounds, others Allergic/Immunocompromised: denies: Difficulty Healing, Frequent Infections, Hives, Itching, others Endocrine: denies: excessive hunger, excessive sweating, excessive thirst, excessive urination, flushing, intolerance to cold, intolerance to heat, unexplained weight gain, unexplained weight loss, others Psychiatric: reports: others (visual hallucinations ); denies: anxiety, bipolar disorder, depression, hopeless, panic disorder, schizophrenia, sleepless, suicidal Physical Exam General Appearance: Mild Distress HEENT: Normal ENT Inspection, Pharynx Normal, TMs Normal Neck: Full Range of Motion, Non-Tender, Normal, Normal Inspection Respiratory: Chest Non-Tender, Lungs Clear, No Accessory Muscle Use, No Respiratory Distress, Normal Breath Sounds Cardiovascular: No Edema, No JVD, No Murmur, No Gallop, Normal Peripheral Pulses, Regular Rate/Rhythm Breast Exam: Deferred Gastrointestinal: No Organomegaly, Non Tender, No Pulsatile Mass, Normal Bowel Sounds, Soft Genitalia: Deferred Pelvic: Deferred Rectal: Deferred Extremities: No calf tenderness, Normal capillary refill, Normal inspection, Normal range of motion, Non-tender, No pedal edema Musculoskeletal : Apperance: Normal Neurologic: Alert, traffic ii manager II-XII nml as Tested, Motor Weakness, Normal Affect, Normal Mood, No Sensory Deficits Cerebellar Function: Tremor (Mild tremors) Reflexes: Normal Skin: Dry, Normal Color, Warm Lymphatic: No Adenopathy Was a procedure done? Was a procedure done?: No EKG EKG : Pulse Rate (adult): 95 [place]: Normal Cardiac Rhythm: NSR Block: None Hypertrophy: None ST: Normal Differential Dx Considerations may include: IA, PE, ACS, costochondritis, pericarditis, gastritis, gastroenteritis, anxiety, EtOH withdrawal, substance abuse, delirium tremens X-Ray, Labs, Meds, VS Vital Signs Date Time Temp Pulse Resp B/P (MAP) Pulse Ox O2 Delivery O2 Flow Rate FiO2 01/24/24 15:20 83 01/24/24 15:15 95 01/24/24 14:31 98.8 87 14 156/94 (114) 100 01/24/24 14:26 95 Lab Test 01/24/24 16:03 01/24/24 15:02 Range/Units Troponin I High Sensitivity 6 5 </=54 ng/L White Blood Count 6.2 4.4-10.8 10^3/uL Red Blood Count 4.70 4.5-5.90 10^6/uL Hemoglobin 15.9 13.5-17.5 g/dL Hematocrit 46.5 41.0-53.0 % Mean Corpuscular Volume 99.0 80.0-100.0 fL Mean Corpuscular Hemoglobin 33.9 H 28.0-32.0 pg Mean Corpuscular Hemoglobin Concent 34.2 32.0-36.0 g/dL Red Cell Distribution Width 13.0 11.8-14.3 % Platelet Count 74 L 140-450 10^3/uL Mean Platelet Volume 9.3 6.9-10.8 fL Neutrophils (%) (Auto) 75.3 37.0-80.0 % Lymphocytes (%) (Auto) 14.9 10.0-50.0 % Monocytes (%) (Auto) 8.8 0.0-12.0 % Eosinophils (%) (Auto) 0.7 0.0-7.0 % Basophils (%) (Auto) 0.3 0.0-2.0 % Neutrophils # (Auto) 4.6 1.6-8.6 10 ^3/uL Lymphocytes # (Auto) 0.9 0.4-5.4 10 ^3/uL Monocytes # (Auto) 0.5 0-1.3 10 ^3/uL Eosinophils # (Auto) 0 0-0.8 10 ^3/uL Basophils # (Auto) 0 0-0.2 10 ^3/uL Nucleated Red Blood Cells 0.0 % Sodium Level 134 L 136-145 mmol/L Potassium Level 3.7 3.5-5.1 mmol/L Chloride Level 99 98-107 mmol/L Carbon Dioxide Level 25 20-31 mmol/L Anion Gap 10 5-15 Blood Urea Nitrogen 14 9-23 mg/dL Creatinine 0.65 L 0.700-1.30 mg/dL Glomerular Filtration Rate Calc 126 >90 mL/min BUN/Creatinine Ratio 21.5 H 10.0-20.0 Serum Glucose 86 74-106 mg/dL Calcium Level 9.5 8.7-10.4 mg/dL Total Bilirubin 1.8 H 0.2-1.0 mg/dL Aspartate Amino Transferase (AST) 86 H 13-40 U/L Alanine Aminotransferase (ALT) 120 H 7-40 U/L Alkaline Phosphatase 76 46-116 U/L Total Protein 6.0 5.7-8.2 g/dL Albumin 3.9 3.2-4.8 g/dL Plasma/Serum Blood Alcohol < 3.0 <10 mg/dL PROCEDURE(s): CXRP - CHEST PORTABLE IMPRESSION: No acute intrathoracic abnormality. The patient's CBC and chemistry panel is within normal limits. The alcohol level is negative The troponin level x2 is negative At this time, the patient was being discharged The patient will follow up with the primary care doctor The patient will return to the emergency department's the condition worsens. The patient was given substance abuse counseling Images Reviewed?: Images reviewed and evaluated by me Time of 1ST Reevaluation: 15:15 Reevaluation 1ST: Unchanged Patient Education/Counseling: Diagnosis, Treatment, Prognosis, Need For Follow Up Family Education/Counseling: No Family Present Departure 1 Departure Time of Disposition: 17:58 Impression: Primary Impression: Alcohol withdrawal Qualified Codes: F10.930 - Alcohol use, unspecified with withdrawal, uncomplicated Additional Impression: Non-cardiac chest pain Disposition: HOME / SELF CARE / HOMELESS Condition: Fair e-Prescriptions Chlordiazepoxide Hcl (Ni-1) (I (Librium) 10 Mg Cap 10 MG PO BID for 7 Days, #14 CAP Prov: ANETTE MOSS MD 01/24/24 Discharged With: Self Critical Care Note Critical Care Time?: No Stability Stability form required: No Heart Score Heart Score: Heart Score Response (Comments) Value History Slightly Suspicious 0 EKG Normal 0 Age <45 0 Risk Factors 1 or 2 risk factors 1 Troponin Normal limit 0 Total 1 I personally scribed for ANETTE MOSS MD ([email or web address]) on 01/24/24 at 15:12. Electronically submitted by Toro Mcmullen ([email or web address]). I personally scribed for ANETTE MOSS MD ([email or web address]) on 01/24/24 at 15:15. Electronically submitted by Toro Mcmullen ([email or web address]). I personally scribed for ANETTE MOSS MD ([email or web address]) on 01/24/24 at 16:15. Electronically submitted by Toro Mcmullen ([email or web address]). ANETTE MOSS MD Jan 24, 2024 15:12
[2024-01-24 15:44] LABS: Basophils # (auto) 0 10 ^3/uL (0-0.2); Basophils % (auto) 0.3 % (0.0-2.0); Eosinophils # (auto) 0 10 ^3/uL (0-0.8); Eosinophils % (auto) 0.7 % (0.0-7.0); Hematocrit 46.5 % (41.0-53.0); Hemoglobin 15.9 g/dL (13.5-17.5); Lymphocytes # (auto) 0.9 10 ^3/uL (0.4-5.4); Lymphocytes % (auto) 14.9 % (10.0-50.0); Mean Corpuscular Hemoglobin 33.9 pg (28.0-32.0); Mean Corpuscular Hgb Conc. 34.2 g/dL (32.0-36.0); Monocytes # (auto) 0.5 10 ^3/uL (0-1.3); Monocytes % (auto) 8.8 % (0.0-12.0); Neutrophils # (auto) 4.6 10 ^3/uL (1.6-8.6); Neutrophils % (auto) 75.3 % (37.0-80.0); Platelet Count (auto) 74 10^3/uL (140-450); White Blood Cell 6.2 10^3/uL (4.4-10.8)
--- NOTE | 2024-01-24 15:44 | DVH ---
XY CHEST PORTABLE, HISTORY: CP COMPARISON: XY CHEST PORTABLE on DOS: 01/21/24 XY CHEST PORTABLE on DOS: 01/21/24 TECHNICAL DATA: 1 view of the chest was obtained. FINDINGS: Lines and tubes: None Cardiomediastinal silhouette: normal Pulmonary vasculature: normal Lung expansion: normal Lung airspace: normal Lung interstitium: normal Pleura: normal Pneumothorax: no Bones: Unremarkable Other: no IMPRESSION: No acute intrathoracic abnormality.
[2024-01-24 16:00] LABS: Alanine Aminotransferase 120 U/L (7-40); Albumin 3.9 g/dL (3.2-4.8); Alkaline Phosphatase 76 U/L (46-116); Anion Gap 10 (5-15); Aspartate Aminotransferase 86 U/L (13-40); BUN/Creatinine Ratio 21.5 (10.0-20.0); Bilirubin, Total 1.8 mg/dL (0.2-1.0); Blood Alcohol < 3.0 mg/dL (<10); Blood Urea Nitrogen 14 mg/dL (9-23); Calcium 9.5 mg/dL (8.7-10.4); Carbon Dioxide 25 mmol/L (20-31); Chloride 99 mmol/L (98-107); Glucose 86 mg/dL (74-106); Potassium 3.7 mmol/L (3.5-5.1); Sodium 134 mmol/L (136-145)
[2024-01-24] MEDS ORDERED: CHL10C PO (17:59)
[2024-01-24] MEDS: ASPirin 81 mg TAB PO ONE (18:36)
[2024-01-24] MEDS: SODIUM CHLORIDE 0.9% 500 ML IV ONE (18:36)
[2024-01-24] MEDS: LORazepam 2MG/ML-1ML VIAL IV ONE (18:40)
--- NOTE | 2024-01-24 18:58 | ECG ---
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
--- NOTE | 2024-01-24 18:59 | ECG ---
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
[2024-01-24 20:37] VITALS: BP 132/88; PULSE 80; RESP 14; TEMP 98; O2SAT 100
== END 2024-01-24 21:20 | disposition home or self-care (01) ==
LOC: EDBD 14:22 → ER 14:22 → EDUNIT# 14:22 → ER 21:20
DX: R07.89 Other chest pain (principal); F10.239 Alcohol dependence with withdrawal, unspecified; F17.210 Nicotine dependence, cigarettes, uncomplicated; I10 Essential (primary) hypertension; Z59.00 Homelessness unspecified; Y90.8 Blood alcohol level of 240 mg/100 ml or more
CPT/HCPCS: 36415; 71045; 80053; 80320; 84484; 85025; 93005; 96361; 96374; 99285; J2060; J7040